=== PATIENT | male | born 1990 | race Caucasian/White ===

== ENCOUNTER 2017-05-04 22:14 | Observation (INO) | payer BC, OTHER ==
[2017-05-04] MEDS ORDERED: NS 1000 ML 1,000 ML IV ONE (22:28)
[2017-05-04] MEDS ORDERED: ZOFRAN INJ 4 MG VIAL IVP ONE (22:29)
[2017-05-04] MEDS ORDERED: NS 1000 ML 1,000 ML ONE (22:30)
[2017-05-04] MEDS ORDERED: ZOFRAN INJ 4 MG VIAL ONE (22:37)
--- NOTE | 2017-05-04 22:51 | DR.ABDMALE ---
HPI - Time seen Time seen: 22:26 - PCP Primary Care Physician: DARLENE - Complaint Chief Complaint Doctors Comments: I agree with history as stated.. Patient has had prevous symptoms in the past; has undergone UGI; admits to a burning sensatin of abdomen horizonally. Chief Complaint:: ABD PAIN, EPIGASTRIC AREA SINCE April, WORST TONIGHT. N/V , WEIGHT LOSS 20LBS SINCE April. DIARHHEA STARTED TODAY Self Treatment fo Chief Complaint: GI COCKTAIL, NEXIUM, PROTONIS - Mode of arrival Mode of Arrival: Ambulatory - Timing Onset of Chief Complaint: 04/13/17 PMH - PMH Past Medical History: Yes Past Medical History: Hypertension Past Medical History Comment: HERNIA Past Surgical History: Yes Surgical History: Tonsillectomy - Family History History of Family Medical Conditions: Yes Family Medical History: Diabetes Mellitus, Cancer, [place], Coronary Artery Disease, Heart Failure, Hypertension - Social History Type of Tobacco Use: Cigarettes Alcohol Use: None Do you use any recreational Drugs:: No Lives With: Spouse Lives Where: Home - infectious screening Have you traveled outside the country in the last 6 months?: No Isolation: Standard ROS - Review of Systems Eyes: No Symptoms Reported ENTM: No Symptoms Reported Respiratoy: No Symptoms Reported Cardiovascular: No Symptoms Reported Gastrointestinal/Abdominal: Abdominal Pain, Nausea, Vomiting Genitourinary: No Symptoms Reported, See HPI Neurological: No Symptoms Reported Musculoskeletal: No Symptoms Reported Integumentary: No Symptoms Reported Hematologic/Lymphatic: No Symptoms Reported Endocrine: No Symptoms Reported Psychiatric: No Symptoms Reported All Other Systems: Reviewed and Negative PE - Vital Signs Vital Signs: Temp Pulse Resp BP BP BP Pulse Ox 05/04/17 22:15 97.9 F 60 16 147/86 96 12/10/15 11:30 180/99 04/24/15 15:49 138/66 01/23/14 23:08 135/63 - General Limitations: No Limitations General Appearance: Alert, In No Apparent Distress - Head Head Exam: Normal Inspection, Atraumatic - Eyes Eye exam: Normal Appearance, PERRL, EOMI - ENT ENT Exam: Normal Exam, Normal Oropharynx - Neck Neck Exam: Normal Inspection, Full ROM - Chest Chest Inspection: Normal Inspection - Respiratory Respiratory Exam: Normal Lung Sounds Bilat Respiratory Exam: Bilateral Clear to Auscultation - Cardiovascular Cardiovascular Exam: Regular Rate, Normal Rhythm - Abdominal Exam Abdominal Exam: Normal Inspection, Normal Bowel Sounds Abdominal Tenderness: Epigastrium - Rectal Rectal Exam: Deferred - Back Back Exam: Normal Inspection - Extremeties Extremities Exam: Normal Inspection, Full ROM - Exam: Male: Deferred - Neurologic Neurological Exam: Alert, Oriented X3, CN II-XII Intact - Psychiatric Psychiatric Exam: Normal Affect, Normal Mood - Skin Skin Exam: Warm, Dry, Intact Course - Reevaluation 1st: Improved - Consultation Called: 12:00 (No Answer) ROR - Labs Reviewed Result Diagrams: 05/04/17 22:36 05/04/17 22:36 Laboratory: WBC 6.4 X10^3/uL (3.6-10.0) 05/04/17 22:36 RBC 4.99 X10^6/uL (4.7-6.0) 05/04/17 22:36 Hgb 14.9 g/dL (13.5-18.0) 05/04/17 22:36 Hct 42.8 % (42.0-54.0) 05/04/17 22:36 MCV 85.7 fL (80.0-100.0) 05/04/17 22:36 MCH 29.9 pg (27.0-34.0) 05/04/17 22:36 MCHC 34.8 g/dL (33.0-35.0) 05/04/17 22:36 RDW 12.6 % (11.6-16.5) 05/04/17 22:36 Plt Count 255 X10^3/uL (150.0-450.0) 05/04/17 22:36 Plt Count Comment Adequate (ADEQUATE) 05/04/17 22:36 MPV 7.7 fL (7.4-11.0) 05/04/17 22:36 Neut % 58.2 % (42.0-75.0) 05/04/17 22:36 Lymph % 32.0 % (21.0-51.0) 05/04/17 22:36 [place] % 7.6 % (0.0-13.0) 05/04/17 22:36 Eos % 2.0 % (0.9-2.9) 05/04/17 22:36 Baso % 0.2 % (0.2-1.0) 05/04/17 22:36 Neut # 3.7 x10^3/uL (2.2-4.8) 05/04/17 22:36 Lymph # 2.0 X10^3/uL (1.3-2.9) 05/04/17 22:36 [place] # 0.5 x10^3/uL (0.3-0.8) 05/04/17 22:36 Eos # 0.1 x10^3/uL (0.0-0.2) 05/04/17 22:36 Baso # 0.0 X10^3/uL (0.0-0.1) 05/04/17 22:36 Absolute Nucleated RBC 0.6 /100WBC 05/04/17 22:36 Total Counted 100 05/04/17 22:36 Neutrophils % (Manual) 86 % (39-76) H 05/04/17 22:36 Lymphocytes % (Manual) 10 % (13-43) L 05/04/17 22:36 Monocytes % (Manual) 4 % (4-9) 05/04/17 22:36 Plt Morphology Comment Normal (NORMAL) 05/04/17 22:36 RBC Morphology Normal (NORMAL) 05/04/17 22:36 Sodium 141 mmol/L (136-145) 05/04/17 22:36 Corrected Sodium TNP 05/04/17 22:36 Potassium 3.7 mmol/L (3.5-5.1) 05/04/17 22:36 Chloride 104 mmol/L (98-107) 05/04/17 22:36 Carbon Dioxide 29.8 mmol/L (21-32) 05/04/17 22:36 BUN 8 mg/dL (7-18) 05/04/17 22:36 Creatinine 0.96 mg/dL (0.70-1.30) 05/04/17 22:36 Est GFR (MDRD) Af Amer > 60 (>60) 05/04/17 22:36 Est GFR (MDRD) Non-Af > 60 (>60) 05/04/17 22:36 Glucose 97 mg/dL (65-99) 05/04/17 22:36 Calcium 8.6 mg/dL (8.5-10.1) 05/04/17 22:36 Corrected Calcium TNP 05/04/17 22:36 Total Bilirubin 0.40 mg/dL (0.2-1.0) 05/04/17 22:36 AST 15 Units/L (15-37) 05/04/17 22:36 ALT 26 Units/L (12-78) 05/04/17 22:36 Alkaline Phosphatase 51 Units/L (46-116) 05/04/17 22:36 C-Reactive Protein 5.40 mg/L (0-3.0) H 05/04/17 22:36 Total Protein 7.4 g/dL (6.4-8.2) 05/04/17 22:36 Albumin 3.9 g/dL (3.4-5.0) 05/04/17 22:36 Globulin 3.5 g/dL (2.5-4.5) 05/04/17 22:36 Albumin/Globulin Ratio 1.1 Ratio (1.1-2.1) 05/04/17 22:36 Amylase 29 Units/L (25-115) 05/04/17 22:36 Lipase 113 Units/L (73-393) 05/04/17 22:36 Specimen Type Clean catch urine 05/04/17 22:45 Urine Color Yellow (YELLOW) 05/04/17 22:45 Urine Appearance Clear (CLEAR) 05/04/17 22:45 Urine pH 6.0 (5.0 - 8.0) 05/04/17 22:45 Ur Specific [place] 1.020 (1.000-1.030) 05/04/17 22:45 Urine Protein 1+ (NEGATIVE) 05/04/17 22:45 Urine Glucose (UA) Negative (NEGATIVE) 05/04/17 22:45 Urine Ketones Negative (NEGATIVE) 05/04/17 22:45 Urine Occult Blood Negative (NEGATIVE) 05/04/17 22:45 Urine Nitrite Negative (NEGATIVE) 05/04/17 22:45 Urine Bilirubin Negative (NEGATIVE) 05/04/17 22:45 Urine Urobilinogen Normal (NORMAL) 05/04/17 22:45 Ur Leukocyte Esterase Negative (NEGATIVE) 05/04/17 22:45 Urine RBC None seen /HPF (NEGATIVE) 05/04/17 22:45 Urine WBC 0-1 /HPF (NEGATIVE) 05/04/17 22:45 Ur Squamous Epith Cells Rare /HPF (NEGATIVE) 05/04/17 22:45 Urine Bacteria Trace /HPF (NEGATIVE) 05/04/17 22:45 Ur Culture Indicated? No/not indicated 05/04/17 22:45 H. pylori IgG Antibody Negative (NEGATIVE) 05/04/17 22:36 - XRAY XRAY Interpreted by: Radiologist (CT Abdomen/Pelvis-normal) - Diagnosis Discharge Problem: Weight loss, non-intentional Intractable vomiting with nausea Qualifiers: Vomiting type: unspecified Qualified Code(s): R11.2 - Nausea with vomiting, unspecified - Discharge Plan Condition: Stable - Follow ups/Referrals Follow ups/Referrals: Chacorta Vann [Primary Care Provider] - 3 days - Instructions
[2017-05-04 22:54] LABS: ALANINE AMINOTRANSFERASE 26 Units/L (12-78); ALBUMIN 3.9 g/dL (3.4-5.0); ALKALINE PHOSPHATASE 51 Units/L (46-116); AMYLASE 29 Units/L (25-115); ASPARTATE AMINO TRANSFERASE 15 Units/L (15-37); BLOOD UREA NITROGEN 8 mg/dL (7-18); CALCIUM 8.6 mg/dL (8.5-10.1); CARBON DIOXIDE 29.8 mmol/L (21-32); CHLORIDE 104 mmol/L (98-107); CREATININE 0.96 mg/dL (0.70-1.30); GLUCOSE 97 mg/dL (65-99); LIPASE 113 Units/L (73-393); SODIUM 141 mmol/L (136-145); TOTAL PROTEIN 7.4 g/dL (6.4-8.2); eGFR BLACK RACES > 60 (>60); eGFR NON BLACK RACES > 60 (>60)
[2017-05-04 22:55] LABS: BILIRUBIN,URINE NEGATIVE (NEGATIVE); BLOOD/HEMOGLOBIN,URINE NEGATIVE (NEGATIVE); GLUCOSE, URINE NEGATIVE (NEGATIVE); KETONES,URINE NEGATIVE (NEGATIVE); LEUKOCYTE ESTERASE ,URINE NEGATIVE (NEGATIVE); NITRITES,URINE NEGATIVE (NEGATIVE); PROTEIN,URINE 1+ (NEGATIVE); UROBILINOGEN,URINE NORMAL (NORMAL)
[2017-05-04 23:01] LABS: BASOPHILS % (AUTO) 0.2 % (0.2-1.0); EOSINOPHILS # (AUTO) 0.1 x10^3/uL (0.0-0.2); HEMATOCRIT 42.8 % (42.0-54.0); HEMOGLOBIN 14.9 g/dL (13.5-18.0); MEAN CORPUSCULAR HEMOGLOBIN 29.9 pg (27.0-34.0); MEAN CORPUSCULAR HGB CONC 34.8 g/dL (33.0-35.0); MEAN CORPUSCULAR VOLUME 85.7 fL (80.0-100.0); MEAN PLATELET VOLUME 7.7 fL (7.4-11.0); MONOCYTES # (AUTO) 0.5 x10^3/uL (0.3-0.8); MONOCYTES % (AUTO) 7.6 % (0.0-13.0); NEUTROPHILS # (AUTO) 3.7 x10^3/uL (2.2-4.8); NEUTROPHILS % (AUTO) 58.2 % (42.0-75.0); PLATELET COUNT 255 X10^3/uL (150.0-450.0); RED BLOOD COUNT 4.99 X10^6/uL (4.7-6.0); RED CELL DISTRIBUTION WIDTH 12.6 % (11.6-16.5); WHITE BLOOD COUNT 6.4 X10^3/uL (3.6-10.0)
[2017-05-04 23:01] LABS: APPEARANCE,URINE CLEAR (CLEAR); BACTERIA,URINE TRACE /HPF (NEGATIVE); COLOR,URINE YELLOW (YELLOW); RBC,URINE NONE SEEN /HPF (NEGATIVE); SQUAMOUS EPITHELIAL CELL,UR RARE /HPF (NEGATIVE)
[2017-05-04] MEDS ORDERED: NS 100 ML IV 100 ML IV ONE (23:13)
[2017-05-04 23:25] LABS: PLATELET MORPHOLOGY COMMENT NORMAL (NORMAL)
--- NOTE | 2017-05-04 23:47 | CT ---
EXAM: CT ABDOMEN AND PELVIS WITH CONTRAST INDICATION: Abdominal pain COMPARISION: No priors available for comparison TECHNIQUE: Axial CT examination of the abdomen and pelvis was performed with intravenous contrast. The patient received intravenous contrast without adverse reaction. Coronal and sagittal reconstructions were c reated using the axial data. FINDINGS: The lung bases are clear. The liver, spleen, pancreas, adrenal glands, kidneys, and gallbladder are normal. There is no evidence of biliary ductal dilatation. The aorta and inferior vena cava are norm al in caliber. The bowel loops are nonobstructed. No abnormal mass, lymphadenopathy, or fluid collection. Urinary bladder is normal. The appendix is normal. The regional skeleton is intact. IMPRESSION: Normal CT examination of the abdomen and pelvis. Reported By:
[2017-05-05] MEDS ORDERED: PROTONIX INJ 40 MG VIAL ONE (00:39)
[2017-05-05] MEDS ORDERED: NS 100 ML IV 100 ML IV ONE (00:40)
[2017-05-05] MEDS: PROTONIX INJ 40 MG VIAL 80 MG in NS 100 ML IV 80 ML IV SCH ×3 (00:54→20:54)
[2017-05-05 04:50] VITALS: BMI 38.2
[2017-05-05 05:02] LABS: BASOPHILS % (AUTO) 0.4 % (0.2-1.0); EOSINOPHILS # (AUTO) 0.1 x10^3/uL (0.0-0.2); EOSINOPHILS % (AUTO) 2.2 % (0.9-2.9); HEMATOCRIT 38.3 % (42.0-54.0); HEMOGLOBIN 13.7 g/dL (13.5-18.0); LYMPHOCYTES # (AUTO) 1.8 X10^3/uL (1.3-2.9); LYMPHOCYTES % (AUTO) 30.7 % (21.0-51.0); MEAN CORPUSCULAR HGB CONC 35.7 g/dL (33.0-35.0); MEAN CORPUSCULAR VOLUME 84.1 fL (80.0-100.0); MEAN PLATELET VOLUME 8.1 fL (7.4-11.0); MONOCYTES # (AUTO) 0.4 x10^3/uL (0.3-0.8); MONOCYTES % (AUTO) 7.4 % (0.0-13.0); NEUTROPHILS # (AUTO) 3.5 x10^3/uL (2.2-4.8); NEUTROPHILS % (AUTO) 59.3 % (42.0-75.0); PLATELET COUNT 236 X10^3/uL (150.0-450.0); RED BLOOD COUNT 4.56 X10^6/uL (4.7-6.0); RED CELL DISTRIBUTION WIDTH 12.9 % (11.6-16.5); WHITE BLOOD COUNT 5.9 X10^3/uL (3.6-10.0)
[2017-05-05 05:05] LABS: ALANINE AMINOTRANSFERASE 23 Units/L (12-78); ALBUMIN 3.3 g/dL (3.4-5.0); ALKALINE PHOSPHATASE 42 Units/L (46-116); ASPARTATE AMINO TRANSFERASE 15 Units/L (15-37); BLOOD UREA NITROGEN 7 mg/dL (7-18); CALCIUM 8.1 mg/dL (8.5-10.1); CARBON DIOXIDE 28.2 mmol/L (21-32); CHLORIDE 106 mmol/L (98-107); COR CA(FOR HYPOALB) 8.7 mg/dL (8.5-10.1); CREATININE 0.86 mg/dL (0.70-1.30); GLUCOSE 85 mg/dL (65-99); SODIUM 140 mmol/L (136-145); TOTAL PROTEIN 6.3 g/dL (6.4-8.2); eGFR BLACK RACES > 60 (>60); eGFR NON BLACK RACES > 60 (>60)
--- NOTE | 2017-05-05 11:19 | DR.H&P ---
H&P - History & Physical for Day of: H&P Date: 05/05/17 - Chief Complaint Chief Complaint: VOMITING, WEIGHT LOSS - Allergies Allergies/Adverse Reactions: Allergies Allergy/AdvReac Type Severity Reaction Status Date / Time No Known Drug Allergies Allergy Verified 05/04/17 23:36 - History of Present Illness History of Present Illness: IS A 27 YEAR OLD WHITE MALE PATIENT OF OURS WHO PRESENTED TO THE EMERGENCY ROOM WITH COMPLAINTS OF VOMITING, EPIGASTRIC PAIN, AND WEIGHT LOSS. PATIENT STATES THAT SYMPTOMS STARTED ON April. HE REPORTS A WEIGHT LOSS OF 20LBS SINCE THEN. PATIENT STATES THAT HE IMMEDIATELY FEELS NAUSEATED AFTER HE EATS AND THEN BEGINS VOMITING. AFTER VOMITING, PATIENT STATES THAT NAUSEA SUBSIDES UNTIL THE NEXT TIME THAT HE EATS AGAIN. HE ADMITS TO A BURNING SENSATION OF THE ABDOMEN. LUNGS ARE CLEAR ON AUSCULTATION, BOWEL SOUNDS NORMAL IN ALL QUADRANTS. VITALS UPON ARRIVAL TO ER ARE 97.9-60-16-96%-147/86. CBC WNL. CMP WNL EXCEPT CRP 5.40. URINALYSIS WNL. H- PYLORI WNL. CT ABD/PELVIS REPORTS NORMAL. PATIENT WAS GIVEN A NORMAL SALINE BOLUS AND ZOFRAN 4MG IVP IN ER. NO IMPROVEMENT IN SYMPTOMS NOTED. WE ADMITTED PATIENT FOR FURTHER TREATMENT AND EVALUATION. WE STARTED PATIENT ON A PROTONIX DRIP AND ZOFRAN 4MG IV Q8H PRN. ON MORNING ROUNDS, PATIENT IS ALERT AND ORIENTED. IS AT BEDSIDE. HE IS WITH COMPLAINTS OF A BURNING SENSATION AND EPIGASTRIC PAIN. HE DENIES VOMITING THROUGHOUT THE NIGHT. PATIENT REPORTS THAT SYMTOMS OF NAUSEA AND VOMITING BEGIN IMMEDIATELY AFTER EATING. HE REPORTS THAT EATING USUALLY MAKES EPIGASTRIC PAIN AND BURNING WORSE. LUNGS ARE CLEAR ON AUSCULTATION. VITALS THIS AM ARE 98.1-52-18-98%-111/60. CBC WNL EXCEPT RBC 4.56 , HCT 38.3. CMP WNL EXCEPT CALCIUM 8.1, ALKALINE PHOSPHATASE 42, TOTAL PROTEIN 6.3, ALBUMIN 3.3. WE WILL START GI COCKTAIL 30ML QID, ORDER A GALLBLADDER US, HIDA SCAN, AND CONSULT , [employer] AND S[employer] CLERK. WE WILL RECHECK LABS AND FOLLOW UP WITH PATIENT IN AM. - Past Medical History Past Medical History: Migraines, GERD, Hypertension Additional Medical History: Hx Spasmic Bowel, HIATAL HERNIA, - Past Surgical History Surgical History: Tonsillectomy Additional Surgical History: SKIN GRAFT - Family History Family Medical History: Diabetes Mellitus, Cancer, [place], Coronary Artery Disease, Heart Failure, Hypertension - Social History Does patient currently use any type of tobacco product: Yes Have you used tobacco products in the last 12 months: Yes Type of Tobacco Use: Cigarettes Does any household member use tobacco: Yes Alcohol Use: Occasionally Drug Use: None - Medications Home Medications: Gi Cocktail [Levsin/Maalox/Lidoc Visc] 30 ml PO Q6HR PRN 05/05/17 [History Confirmed 05/05/17] Lansoprazole [PREVACID 15 MG *] 15 mg PO DAILY 05/05/17 [History Confirmed 05/05] Pantoprazole Sodium 40 mg [Protonix Tab 40 mg] 40 mg PO DAILY 05/05/17 [History Confirmed 05/05/17] - Review of Systems Constitutional: See HPI, Other (WEIGHT LOSS ). denies: No Symptoms Reported, Fever, Chills, Sweats, Weakness, Malaise Eyes: No Symptoms Reported. denies: See HPI, Pain, Vision Change, Conjunctivae Inflammation, Eyelid Inflammation, Redness, Other ENT: No Symptoms Reported. denies: See HPI, Ear Pain, Ear Discharge, Nose Pain , Nose Discharge, Nose Congestion, Mouth Pain, Mouth Swelling, Throat Pain, Throat Swelling, Other Respiratory: No Symptoms Reported. denies: See HPI, Cough, Dry, Shortness of Breath, Hemoptysis, SOB with Excertion, Pleuritic Pain, Sputum, Wheezing, Other Cardiovascular: No Symptoms Reported. denies: Chest Pain, See HPI, Palpitations , Orthopnea, Paroxysmal Noc. Dyspnea, Edema, Light Headedness, Other Gastrointestinal: See HPI, Nausea, Vomiting, Abdominal Pain. denies: No Symptoms Reported, Diarrhea, Constipation, Melena, Hematochezia, Other Genitourinary: No Symptoms Reported. denies: See HPI, Dysuria, Frequency, Incontinence, Hematuria, Retention, Other Musculoskeletal: No Symptoms Reported. denies: See HPI, Shoulder Pain, Arm Pain , Back Pain, Hand Pain, Leg Pain, Foot Pain, Neck Pain, Other Skin: No Symptoms Reported. denies: See HPI, Rash, Lesions, Jaundice, Bruising , Wound, Ecchymosis, Other Neurological: No Symptoms Reported. denies: See HPI, Weakness, Numbness, Incoordination, Change in Speech, Confusion, Seizures, Other - Physical Exam Vital Signs: Temperature 98.1 F Pulse Rate [Left Radial] 52 Respiratory Rate 18 Blood Pressure [Left Arm] 111/58 Blood Pressure [Right Arm] 111/60 O2 Sat by Pulse Oximetry 98 Oriented: Normal. negative: Time, Person, Place, Not Oriented, Unable to test, Other Eyes: Normal. negative: Blurred Vision, Diplopia, Discharge, Pain, Redness, Photophobia, Other Ear: Normal. negative: Right, Left, Swelling, Ecchymosis, Hemotypanum, Abrasion , Laceration Nose: Normal. negative: Injected, Discharge, Blood, Other Throat: Normal. negative: Tonsillar Hypertrophy, Red, Exudate, Dry, Other Respiratory: Clear Throughout. negative: Diminished Throughout, Rhonchi Throughout, Rales Throughout, Wheezes Throughout, RUL Clear, RML Clear, RLL Clear, ALIA Clear, LML Clear, LLL Clear, RUL Diminished, RML Diminished, RLL Diminished, ALIA Diminished, LML Diminished, LLL Diminished, RUL Absent, RML Absent, RLL Absent, ALIA Absent, LML Absent, LLL Absent, RUL Rhonchi, RML Rhonchi , RLL Rhonchi, ALIA Rhonchi, LML Rhonchi, LLL Rhonchi, RUL Insp. Wheeze, RML Insp. Wheeze, RLL Insp. Wheeze, ALIA Insp.Wheeze, LML Insp.Wheeze, LLL Insp.Wheeze, RUL Exp. Wheeze, RML Exp. Wheeze, RLL Exp. Wheeze, ALIA Exp. Wheeze , LML Exp. Wheeze, LLL Exp. Wheeze, RUL Rales, RML Rales, RLL Rales, ALIA Rales, LML Rales, LLL Rales, RUL Rub, RML Rub, RLL Rub, ALIA Rub, LML Rub, LLL Rub, RUL Squeak, RML Squeak, RLL Squeak, ALIA Squeak, LML Squeak, LLL Squeak Cardiovascular: Bradycardia. negative: Normal, Tachycardia, Irregular, S3, S4, Systolic, Diastolic, Murmur, Edema, Other : Normal. negative: Dysuria, Hematuria, Frequency, Discharge, Testicular Pain , Bleeding, , Other Auscultation: Bowel Sounds: Normal. negative: Bruit, Absent, Increased, Decreased, High Pitched, Other Palpation: Normal. negative: Spleen Enlarged, Liver Enlarged, Mass Pulsatile, Other Tenderness: Epigastric. negative: Normal, Diffuse, RUQ, RLQ, LUQ, LLQ, Periumbilical, Suprapubic, Mild, Moderate, Severe, Rebound, Guarding, Rigidity, Other Skin: Normal. negative: Decreased Turgur, Rash, Papular, Macular, Maculopapular , Vesicular, Pustular, Petechial, Red, Tender, Hot, Diaphoresis, Wound, Bruising , Ecchymosis, Other Musculoskeletal: Normal. negative: Right, Left, Shoulder, Clavicle, Arm, Elbow , Forearm, Wrist, Hand, Hip, Thigh, Knee, Leg, Ankle, Foot, Back:Thoracic, Back: Lumbar, Back:Midline, Back:Paraspinous, Pelvis, Swelling, Tender, Deformity, Pulse Deficit, Motor Deficit, Sensory Deficit, Instability, Crepitance Psychiatric: Normal. negative: Anxiety, Depression, Agitation, Other Mood Description: Calm. negative: Angry, Apathetic, Depressed, Fearful, Flat, Happy, Hostile, Sad, Suspicious, Withdrawn, Anxious, Appropriate, Labile Affect: Normal. negative: Angry, Anxious, Depressed, Flat, Hysterical, Quiet, Violent Speech Pattern: Clear. negative: Appropriate, Unclear, Inappropriate, Delayed, Slurred, Excessive, Aphasic, Artificially Ventilated - Assessment/Plan (1) Intractable vomiting with nausea Qualifiers: Vomiting type: unspecified Qualified Code(s): R11.2 - Nausea with vomiting , unspecified Status: Acute Plan: ZOFRAN 4MG IV Q8H PRN, CONTINUE TO MONITOR (2) Weight loss, non-intentional Status: Acute Plan: CONSULT GI, CONTINUE TO MONITOR (3) Abdominal pain Qualifiers: Abdominal location: epigastric Qualified Code(s): R10.13 - Epigastric pain Status: Acute Plan: PROTONIX DRIP, GI CONSULT, GALLBLADDER US, HIDA SCAN, CONTINUE TO MONITOR
[2017-05-05] MEDS: LEVSIN/MAALOX/LIDOC VISC PO SCH ×4 (11:30→20:54)
--- NOTE | 2017-05-05 15:20 | US ---
History: Epigastric pain with nausea and vomiting Study: Ultrasound of the right upper quadrant of the abdomen Findings: The gallbladder is distended measuring over 4 centimeters in diameter and 8 centimeters in length. No stones are demonstrated. The gallbladder wall measures up to 6 millimeters thickness. Th e common hepatic duct measures 3.9 millimeters diameter. The right kidney is unremarkable without ma ss or hydronephrosis. There is no free fluid. The liver is unremarkable without mass. The pancreas i s obscured. Impression: Distended gallbladder without stones or sludge demonstrated. Thickened wall suggest acalculous merly cystitis Reported By:
[2017-05-05] MEDS: NS 1000 ML 1,000 ML IV SCH ×2 (15:48→20:56)
[2017-05-05] MEDS: ZOFRAN INJ 4 MG VIAL IVP PRN (18:40)
[2017-05-06 06:08] LABS: BASOPHILS % (AUTO) 0.7 % (0.2-1.0); EOSINOPHILS # (AUTO) 0.1 x10^3/uL (0.0-0.2); EOSINOPHILS % (AUTO) 1.8 % (0.9-2.9); HEMATOCRIT 37.9 % (42.0-54.0); HEMOGLOBIN 13.5 g/dL (13.5-18.0); LYMPHOCYTES # (AUTO) 1.5 X10^3/uL (1.3-2.9); LYMPHOCYTES % (AUTO) 26.6 % (21.0-51.0); MEAN CORPUSCULAR HEMOGLOBIN 30.1 pg (27.0-34.0); MEAN CORPUSCULAR HGB CONC 35.7 g/dL (33.0-35.0); MEAN CORPUSCULAR VOLUME 84.3 fL (80.0-100.0); MEAN PLATELET VOLUME 8.3 fL (7.4-11.0); MONOCYTES # (AUTO) 0.4 x10^3/uL (0.3-0.8); NEUTROPHILS # (AUTO) 3.5 x10^3/uL (2.2-4.8); NEUTROPHILS % (AUTO) 63.9 % (42.0-75.0); PLATELET COUNT 237 X10^3/uL (150.0-450.0); RED CELL DISTRIBUTION WIDTH 13.1 % (11.6-16.5); WHITE BLOOD COUNT 5.5 X10^3/uL (3.6-10.0)
[2017-05-06] MEDS: PROTONIX INJ 40 MG VIAL 80 MG in NS 100 ML IV 80 ML IV SCH ×2 (06:12→20:44)
[2017-05-06] MEDS: NS 1000 ML 1,000 ML IV SCH (06:12)
[2017-05-06 06:29] LABS: ALANINE AMINOTRANSFERASE 22 Units/L (12-78); ALBUMIN 3.2 g/dL (3.4-5.0); ALKALINE PHOSPHATASE 42 Units/L (46-116); ASPARTATE AMINO TRANSFERASE 12 Units/L (15-37); BLOOD UREA NITROGEN 6 mg/dL (7-18); CALCIUM 8.3 mg/dL (8.5-10.1); CARBON DIOXIDE 31.5 mmol/L (21-32); CHLORIDE 108 mmol/L (98-107); COR CA(FOR HYPOALB) 8.9 mg/dL (8.5-10.1); CREATININE 0.97 mg/dL (0.70-1.30); GLUCOSE 82 mg/dL (65-99); SODIUM 143 mmol/L (136-145); TOTAL PROTEIN 6.2 g/dL (6.4-8.2); eGFR BLACK RACES > 60 (>60); eGFR NON BLACK RACES > 60 (>60)
--- NOTE | 2017-05-06 10:07 | PCM.PROG ---
Progress Note - Progress Note for Day of Date: 05/06/17 - Subjective Subjective: WAS ADMITTED FROM THE ER YESTERDAY WITH INTRACTABLE VOMITING AND EXCESSIVE WEIGHT LOSS. HE CONTINUES TODAY WITH COMPLAINTS OF VOMITING ANYTIME HE EATS. HE ALSO CONTINUES WITH COMPLAINTS OF BURNING SENSATION TO EPIGASTRIC AREA. VITALS THIS AM WERE 97.9-46-18-96%-123/64. CBC WNL EXCEPT RBC 4.50, HCT 37.9. CMP WNL EXCEPT CHLORIDE 108, BUN 6, CALCIUM 8.3, AST 12, ALKALINE PHOSPHATASE 42, TOTAL PROTEIN 6.2, ALBUMIN 3.2. GALLBLADDER US REPORTED A DISTENDED GALLBLADDER WITHOUT STONES OR SLUDGE. WE OBTAINED AN EKG YESTERDAY WHICH REPORTED SINUS BRADYCARDIA WITH RATE OF 47. DURING THE NIGHT, PATIENT'S HEARTRATE DROPPED TO 38. PATIENT COULD BENEFIT FROM A SURGICAL CONSULT FOR REMOVAL OF GALLBLADDER, HOWEVER, WE WOULD FEEL MORE COMFORTABLE WITH OBTAINING A CARDIOLOGY CONSULT AND CLEARANCE VIA TELEMEDICINE BEFORE WE CLEAR PATIENT FOR SURGERY. WE WILL CONSULT WITH TODAY VIA TELEMEDICINE. WE WILL RECHECK LABS AND FOLLOW UP WITH PATIENT IN AM. - Past Medical Family Social History Past Med/Fam/Surg Hx: No changes since H&P Allergies: Allergies No Known Drug Allergies Allergy (Verified 05/04/17 23:36) - Review of Systems ROS: No change since H&P - Vital Signs and I&O's Vital Signs: Temperature 97.9 F Pulse Rate [Left Radial] 46 Respiratory Rate 18 Blood Pressure [Left Arm] 123/64 Blood Pressure [Right Arm] 116/58 O2 Sat by Pulse Oximetry 96 Intake and Output: Intake & Output 05/03/17 05/04/17 05/05/17 05/06/17 11:59 11:59 11:59 11:59 Intake Total 0 2064 Output Total 1100 Balance 0 964 - Physical Exam Oriented: Normal. negative: Time, Person, Place, Not Oriented, Unable to test, Other Eyes: Normal. negative: Blurred Vision, Diplopia, Discharge, Pain, Redness, Photophobia, Other Ear: Normal. negative: Right, Left, Swelling, Ecchymosis, Hemotypanum, Abrasion , Laceration Nose: Normal. negative: Injected, Discharge, Blood, Other Throat: Normal. negative: Tonsillar Hypertrophy, Red, Exudate, Dry, Other Cardiovascular: Bradycardia. negative: Normal, Tachycardia, Irregular, S3, S4, Systolic, Diastolic, Murmur, Edema, Other : Normal. negative: Dysuria, Hematuria, Frequency, Discharge, Testicular Pain , Bleeding, , Other Auscultation: Bowel Sounds: Normal. negative: Bruit, Absent, Increased, Decreased, High Pitched, Other Palpation: Normal Tenderness: Epigastric. negative: Normal, Diffuse, RUQ, RLQ, LUQ, LLQ, Periumbilical, Suprapubic, Mild, Moderate, Severe, Rebound, Guarding, Rigidity, Other Skin: Normal. negative: Decreased Turgur, Rash, Papular, Macular, Maculopapular , Vesicular, Pustular, Petechial, Red, Tender, Hot, Diaphoresis, Wound, Bruising , Ecchymosis, Other Musculoskeletal: Normal. negative: Right, Left, Shoulder, Clavicle, Arm, Elbow , Forearm, Wrist, Hand, Hip, Thigh, Knee, Leg, Ankle, Foot, Back:Thoracic, Back: Lumbar, Back:Midline, Back:Paraspinous, Pelvis, Swelling, Tender, Deformity, Pulse Deficit, Motor Deficit, Sensory Deficit, Instability, Crepitance Psychiatric: Normal. negative: Anxiety, Depression, Agitation, Other Mood Description: Calm. negative: Angry, Apathetic, Depressed, Fearful, Flat, Happy, Hostile, Sad, Suspicious, Withdrawn, Anxious, Appropriate, Labile Affect: Normal. negative: Angry, Anxious, Depressed, Flat, Hysterical, Quiet, Violent Speech Pattern: Clear, Appropriate - Laboratory and Diagnostics Result Diagrams: 05/06/17 04:00 05/06/17 04:00 Labs: Laboratory WBC 5.5 X10^3/uL (3.6-10.0) 05/06/17 04:00 RBC 4.50 X10^6/uL (4.7-6.0) L 05/06/17 04:00 Hgb 13.5 g/dL (13.5-18.0) 05/06/17 04:00 Hct 37.9 % (42.0-54.0) L 05/06/17 04:00 MCV 84.3 fL (80.0-100.0) 05/06/17 04:00 MCH 30.1 pg (27.0-34.0) 05/06/17 04:00 MCHC 35.7 g/dL (33.0-35.0) H 05/06/17 04:00 RDW 13.1 % (11.6-16.5) 05/06/17 04:00 Plt Count 237 X10^3/uL (150.0-450.0) 05/06/17 04:00 Plt Count Comment Adequate (ADEQUATE) 05/04/17 22:36 MPV 8.3 fL (7.4-11.0) 05/06/17 04:00 Neut % 63.9 % (42.0-75.0) 05/06/17 04:00 Lymph % 26.6 % (21.0-51.0) 05/06/17 04:00 [place] % 7.0 % (0.0-13.0) 05/06/17 04:00 Eos % 1.8 % (0.9-2.9) 05/06/17 04:00 Baso % 0.7 % (0.2-1.0) 05/06/17 04:00 Neut # 3.5 x10^3/uL (2.2-4.8) 05/06/17 04:00 Lymph # 1.5 X10^3/uL (1.3-2.9) 05/06/17 04:00 [place] # 0.4 x10^3/uL (0.3-0.8) 05/06/17 04:00 Eos # 0.1 x10^3/uL (0.0-0.2) 05/06/17 04:00 Baso # 0.0 X10^3/uL (0.0-0.1) 05/06/17 04:00 Absolute Nucleated RBC 0.2 /100WBC 05/06/17 04:00 Total Counted 100 05/04/17 22:36 Neutrophils % (Manual) 86 % (39-76) H 05/04/17 22:36 Lymphocytes % (Manual) 10 % (13-43) L 05/04/17 22:36 Monocytes % (Manual) 4 % (4-9) 05/04/17 22:36 Plt Morphology Comment Normal (NORMAL) 05/04/17 22:36 RBC Morphology Normal (NORMAL) 05/04/17 22:36 Sodium 143 mmol/L (136-145) 05/06/17 04:00 Corrected Sodium TNP 05/06/17 04:00 Potassium 3.8 mmol/L (3.5-5.1) 05/06/17 04:00 Chloride 108 mmol/L (98-107) H 05/06/17 04:00 Carbon Dioxide 31.5 mmol/L (21-32) 05/06/17 04:00 BUN 6 mg/dL (7-18) L 05/06/17 04:00 Creatinine 0.97 mg/dL (0.70-1.30) 05/06/17 04:00 Est GFR (MDRD) Af Amer > 60 (>60) 05/06/17 04:00 Est GFR (MDRD) Non-Af > 60 (>60) 05/06/17 04:00 Glucose 82 mg/dL (65-99) 05/06/17 04:00 Calcium 8.3 mg/dL (8.5-10.1) L 05/06/17 04:00 Corrected Calcium 8.9 mg/dL (8.5-10.1) 05/06/17 04:00 Total Bilirubin 0.30 mg/dL (0.2-1.0) 05/06/17 04:00 AST 12 Units/L (15-37) L 05/06/17 04:00 ALT 22 Units/L (12-78) 05/06/17 04:00 Alkaline Phosphatase 42 Units/L (46-116) L 05/06/17 04:00 C-Reactive Protein 5.40 mg/L (0-3.0) H 05/04/17 22:36 Total Protein 6.2 g/dL (6.4-8.2) L 05/06/17 04:00 Albumin 3.2 g/dL (3.4-5.0) L 05/06/17 04:00 Globulin 3.0 g/dL (2.5-4.5) 05/06/17 04:00 Albumin/Globulin Ratio 1.1 Ratio (1.1-2.1) 05/06/17 04:00 Amylase 29 Units/L (25-115) 05/04/17 22:36 Lipase 113 Units/L (73-393) 05/04/17 22:36 Specimen Type Clean catch urine 05/04/17 22:45 Urine Color Yellow (YELLOW) 05/04/17 22:45 Urine Appearance Clear (CLEAR) 05/04/17 22:45 Urine pH 6.0 (5.0 - 8.0) 05/04/17 22:45 Ur Specific [place] 1.020 (1.000-1.030) 05/04/17 22:45 Urine Protein 1+ (NEGATIVE) 05/04/17 22:45 Urine Glucose (UA) Negative (NEGATIVE) 05/04/17 22:45 Urine Ketones Negative (NEGATIVE) 05/04/17 22:45 Urine Occult Blood Negative (NEGATIVE) 05/04/17 22:45 Urine Nitrite Negative (NEGATIVE) 05/04/17 22:45 Urine Bilirubin Negative (NEGATIVE) 05/04/17 22:45 Urine Urobilinogen Normal (NORMAL) 05/04/17 22:45 Ur Leukocyte Esterase Negative (NEGATIVE) 05/04/17 22:45 Urine RBC None seen /HPF (NEGATIVE) 05/04/17 22:45 Urine WBC 0-1 /HPF (NEGATIVE) 05/04/17 22:45 Ur Squamous Epith Cells Rare /HPF (NEGATIVE) 05/04/17 22:45 Urine Bacteria Trace /HPF (NEGATIVE) 05/04/17 22:45 Ur Culture Indicated? No/not indicated 05/04/17 22:45 H. pylori IgG Antibody Negative (NEGATIVE) 05/04/17 22:36 - Plan (1) Intractable vomiting with nausea Status: Acute Qualifiers: Vomiting type: unspecified Qualified Code(s): R11.2 - Nausea with vomiting , unspecified Plan: ZOFRAN 4MG IV Q8H PRN, CONTINUE TO MONITOR (2) Weight loss, non-intentional Status: Acute Plan: CONSULT GI, CONTINUE TO MONITOR (3) Abdominal pain Status: Acute Qualifiers: Abdominal location: epigastric Qualified Code(s): R10.13 - Epigastric pain Plan: PROTONIX DRIP, GI CONSULT, CONTINUE TO MONITOR (4) Cholecystitis without cholelithiasis Status: Acute Plan: SURGICAL CONSULT, CONTINUE TO MONITOR
[2017-05-06] MEDS: LEVSIN/MAALOX/LIDOC VISC PO SCH ×3 (10:15→17:06)
[2017-05-06] MEDS: ZOFRAN INJ 4 MG VIAL IVP PRN (10:15)
[2017-05-06] MEDS ORDERED: DIPRIVAN VIAL 20 ML ONE ×2 (12:01→12:16)
[2017-05-06] MEDS ORDERED: LR 1000 ML IV 1,000 ML IV ONE (12:02)
--- NOTE | 2017-05-06 14:36 | NM ---
HISTORY: Abdominal pain Study: Nuclear medicine HIDA scan with ejection fraction Comparison: None Technique: Multiple scintigraphic images of the abdomen were obtained the intravenous administration of 5.2 mCi of technetium labeled Choletec. Following distention of the gallbladder with radiotracer the patient received a fatty meal peer E An estimated gallbladder ejection fraction was calculated based on the physiologic response of this in fusion. Findings: Homogeneous uptake of radiotracer is seen throughout the liver. This intrabiliary ductal system is observed normally. The common hepatic and common bile duct grossly appear unremarkable with normal biliary-bowel transit. The gallbladder is observed to fill normally. After the fatty meal a a gallbladder ejection fraction of 0.4% (normal > 35%) is observed. IMPRESSION: 1. Normal hepatobiliary imaging scan. 2. Abnormal gallbladder ejection fraction 0.4% Reported By:
[2017-05-07] MEDS: PROTONIX INJ 40 MG VIAL 80 MG in NS 100 ML IV 80 ML IV SCH (03:41)
[2017-05-07] MEDS: NS 1000 ML 1,000 ML IV SCH (03:42)
[2017-05-07] MEDS: LEVSIN/MAALOX/LIDOC VISC PO SCH ×2 (06:16→09:21)
[2017-05-07] MEDS: ZOFRAN INJ 4 MG VIAL IVP PRN (06:31)
[2017-05-07 07:14] LABS: BASOPHILS % (AUTO) 0.5 % (0.2-1.0); EOSINOPHILS # (AUTO) 0.1 x10^3/uL (0.0-0.2); EOSINOPHILS % (AUTO) 1.3 % (0.9-2.9); HEMATOCRIT 40.3 % (42.0-54.0); HEMOGLOBIN 14.5 g/dL (13.5-18.0); LYMPHOCYTES # (AUTO) 1.8 X10^3/uL (1.3-2.9); MEAN CORPUSCULAR HEMOGLOBIN 30.4 pg (27.0-34.0); MEAN CORPUSCULAR HGB CONC 35.9 g/dL (33.0-35.0); MEAN CORPUSCULAR VOLUME 84.6 fL (80.0-100.0); MEAN PLATELET VOLUME 8.1 fL (7.4-11.0); MONOCYTES # (AUTO) 0.4 x10^3/uL (0.3-0.8); MONOCYTES % (AUTO) 5.9 % (0.0-13.0); NEUTROPHILS % (AUTO) 64.3 % (42.0-75.0); PLATELET COUNT 237 X10^3/uL (150.0-450.0); RED BLOOD COUNT 4.77 X10^6/uL (4.7-6.0); RED CELL DISTRIBUTION WIDTH 12.8 % (11.6-16.5); WHITE BLOOD COUNT 6.3 X10^3/uL (3.6-10.0)
[2017-05-07 07:23] LABS: ALANINE AMINOTRANSFERASE 26 Units/L (12-78); ALBUMIN 3.5 g/dL (3.4-5.0); ALKALINE PHOSPHATASE 45 Units/L (46-116); ASPARTATE AMINO TRANSFERASE 14 Units/L (15-37); BLOOD UREA NITROGEN 4 mg/dL (7-18); CALCIUM 8.4 mg/dL (8.5-10.1); CARBON DIOXIDE 31.9 mmol/L (21-32); CHLORIDE 108 mmol/L (98-107); CREATININE 0.93 mg/dL (0.70-1.30); GLUCOSE 90 mg/dL (65-99); SODIUM 142 mmol/L (136-145); TOTAL PROTEIN 6.8 g/dL (6.4-8.2); eGFR BLACK RACES > 60 (>60); eGFR NON BLACK RACES > 60 (>60)
[2017-05-07] MEDS ORDERED: XYLOCAINE-MPF 1% ONE (09:44)
[2017-05-07] MEDS ORDERED: LR 1000 ML IV 1,000 ML IV ONE (09:45)
[2017-05-07] MEDS ORDERED: NS 50 ML IV + SPIKE MINIBAG* 100 ML IV ONE (09:45)
[2017-05-07] MEDS ORDERED: MARCAINE 0.25% WITH EPI IJ ONE (09:45)
[2017-05-07] MEDS ORDERED: ANCEF VIAL 1 GM ONE (09:46)
[2017-05-07] MEDS ORDERED: FENTANYL INJ 250 mcg ONE (10:04)
[2017-05-07] MEDS ORDERED: NS IRRIGATION 3000 ML 3,000 ML IR ONE (10:28)
[2017-05-07] MEDS ORDERED: ZOFRAN INJ 4 MG VIAL IVP PRN (11:27)
[2017-05-07] MEDS ORDERED: REGLAN INJ 10 MG VIAL IVP PRN (11:27)
[2017-05-07] MEDS ORDERED: PHENERGAN INJ 25 MG IVP PRN (11:27)
[2017-05-07] MEDS ORDERED: DILAUDID INJ IVP PRN (11:27)
[2017-05-07] MEDS ORDERED: BENADRYL INJ 50 MG VIAL IVP PRN (11:27)
[2017-05-07] MEDS ORDERED: PHENERGAN INJ 25 MG ONE (11:40)
[2017-05-07] MEDS ORDERED: DILAUDID INJ ONE (11:48)
[2017-05-07] MEDS ORDERED: DILAUDID INJ IVP ONE (12:28)
[2017-05-07] MEDS ORDERED: PERCOCET TAB 5/325 MG PO PRN (12:53)
[2017-05-07] MEDS ORDERED: MYLICON TAB 80 MG CHEW PO ONE ×2 (14:26→14:35)
[2017-05-07] MEDS ORDERED: ZANTAC PO ONE ×2 (14:28→14:35)
[2017-05-07 16:41] VITALS: BP 135/62
--- NOTE | 2017-05-10 12:02 | DR.CARTERD ---
- Discharge Summary for: Discharge Summary for Date of:: 05/07/17 - Admission Date Date of Admission: 05/05/17 - Admission Diagnoses Admission Diagnosis: (1) Intractable vomiting with nausea (2) Weight loss, non-intentional (3) Abdominal pain - Discharge Date Discharge Date: 05/07/17 - Discharge Diagnoses Discharge Diagnosis: (1) Intractable vomiting with nausea (2) Weight loss, non-intentional (3) Abdominal pain (4) Cholecystitis without cholelithiasis - Hospital Course Hospital Course: IS A 27 YEAR OLD WHITE MALE PATIENT OF OURS WHO PRESENTED TO THE EMERGENCY ROOM WITH COMPLAINTS OF VOMITING, EPIGASTRIC PAIN, AND WEIGHT LOSS. PATIENT STATED THAT SYMPTOMS STARTED ON April. HE REPORTED A WEIGHT LOSS OF 20LBS SINCE THEN. PATIENT STATED THAT HE IMMEDIATELY FEELS NAUSEATED AFTER HE EATS AND THEN BEGINS VOMITING. AFTER VOMITING, PATIENT STATED THAT NAUSEA SUBSIDES UNTIL THE NEXT TIME THAT HE EATS AGAIN. HE ADMITED TO A BURNING SENSATION OF THE ABDOMEN. LUNGS WERE CLEAR ON AUSCULTATION, BOWEL SOUNDS NORMAL IN ALL QUADRANTS. VITALS UPON ARRIVAL TO ER WERE 97.9-60-16-96%-147/86. CBC WNL. CMP WNL EXCEPT CRP 5.40. URINALYSIS WNL. H-PYLORI WNL. CT ABD/PELVIS REPORTED NORMAL. PATIENT WAS GIVEN A NORMAL SALINE BOLUS AND ZOFRAN 4MG IVP IN ER. NO IMPROVEMENT IN SYMPTOMS NOTED. WE ADMITTED PATIENT FOR FURTHER TREATMENT AND EVALUATION. WE STARTED PATIENT ON A PROTONIX DRIP AND ZOFRAN 4MG IV Q8H PRN. ON MORNING ROUNDS, PATIENT WAS ALERT AND ORIENTED. AT BEDSIDE. HE WAS WITH COMPLAINTS OF A BURNING SENSATION AND EPIGASTRIC PAIN. HE DENIED VOMITING THROUGHOUT THE NIGHT. PATIENT REPORTED THAT SYMTOMS OF NAUSEA AND VOMITING BEGIN IMMEDIATELY AFTER EATING. HE REPORTED THAT EATING USUALLY MAKES EPIGASTRIC PAIN AND BURNING WORSE. LUNGS ARE CLEAR ON AUSCULTATION. VITALS WERE ARE 98.1-52-18-98%-111/60. CBC WNL EXCEPT RBC 4.56, HCT 38.3. CMP WNL EXCEPT CALCIUM 8.1, ALKALINE PHOSPHATASE 42, TOTAL PROTEIN 6.3, ALBUMIN 3.3. WE STARTED GI COCKTAIL 30ML QID, ORDERD A GALLBLADDER US, HIDA SCAN, AND CONSULTED , TASSEL MAKING MACHINE OPERATOR. ON DAY 2 OF STAY, GALLBLADDER US REPORTED A DISTENDED GALLBLADDER WITHOUT STONES OR SLUDGE. WE OBTAINED AN EKG REPORTED SINUS BRADYCARDIA WITH RATE OF 47. PATIENT'S HEARTRATE ALSO DROPPED TO 38, WHICH WAS RECORDED BY TELEMETRY. WE PLANNED TO CONSULT FOR REMOVAL OF GALLBLADDER, BUT PER PATIENT AND FAMILYS REQUEST, WE CONSULTED WITH , SENIOR SCHEDULER VIA TELEMEDICINE TO CLEAR FOR SURGERY. CLEARED PATIENT FOR SURGERY WITH NO CONCERNS. , TASSEL MAKING MACHINE OPERATOR CONSULTED WITH PATIENT AND TOOK PATIENT FOR EGD. EGD REPORTED MILD GASTRITIS AND SEVERE ACID REFLUX. , GENERAL SURGEON CONSULTED WITH PATIENT AND PLANNED FOR REMOVAL OF GALLBLADDER ON THE FOLLOWING MORNING. ON DAY 3 OF STAY, PATIENT WAS ALERT AND ORIENTED ON ROUNDS. HE CONTINUED WITH COMPLAINTS OF BURNING TO ABDOMEN AND NAUSEA. VITALS WERE 97.6-53-18-95%-138/74. CBC WNL EXCEPT HCT 40.3. CMP WNL EXCEPT CHLORIDE 108, BUN 4, CALCIUM 8.4, AST 14 , ALKALINE PHOSPHATASE 45. PATIENT HAD LAPROSCOPIC REMOVAL OF GALLBLADDER WITHOUT COMPLICATION. CLEARED PATIENT FOR DISCHARGE HOME. INSTRUCTION FOR FOLLOW UP AND MEDICATIONS WERE GIVEN TO PATIENT AND FAMILY. BOTH VERBALIZED UNDERSTANDING. PATIENT WAS DISCHARGED HOME IN STABLE CONDITION WITH PRESCRIPTION FOR PROTONIX 40MG BID AND PERCOCET 5/325 1-2 PO Q4H PRN. HE HAS INSTRUCTIONS TO FOLLOW UP IN OFFICE IN 2 WEEKS AND WITH ON 05/25/17. - Discharge Medications Discharge Medications: Gi Cocktail [LEVSIN/Maalox/Lidoc Visc (GI COCKTAIL) *] 30 ml PO Q6HR PRN [History] Oxycodone HCl/Acetaminophen [Percocet 5-325 mg Tablet] 1 - 2 each PO Q4HR PRN # 30 tablet 05/07/17 [Rx] Pantoprazole Sodium 40 mg [PROTONIX 40 MG *] 40 mg PO BID #60 tab 05/07/17 [Rx]
== END 2017-05-07 16:25 | disposition home or self-care (01) ==
LOC: ER 22:23 → MED/SURG 05-05 00:16
PROVIDERS: ADMIT Internal Medicine; ATTEND Internal Medicine
PROC: 0DB68ZX Excision of Stomach, Via Natural or Artificial Opening Endoscopic, Diagnostic (ICD-10-PCS; 2017-05-06)
PROC: 0DB88ZX Excision of Small Intestine, Via Natural or Artificial Opening Endoscopic, Diagnostic (ICD-10-PCS; principal; 2017-05-06 14:15)
PROC: 0FT44ZZ Resection of Gallbladder, Percutaneous Endoscopic Approach (ICD-10-PCS; 2017-05-07)
DX: R11.2 Nausea with vomiting, unspecified (principal); R63.4 Abnormal weight loss; I10 Essential (primary) hypertension; R10.13 Epigastric pain; K80.80 Other cholelithiasis without obstruction; K22.8 Other specified diseases of esophagus; R10.84 Generalized abdominal pain; K82.8 Other specified diseases of gallbladder
CPT/HCPCS: 36415; 74177; 76705; 78227; 80053; 81001; 82150; 83690; 85025; 86140; 86677; 93005; 96365; 96374; 96375; 99284; A4216; A4222; C9113; S0020; A4217; G0378; J0690; J1170; J2405; J2550; J3010; J3490; J7120